=== PATIENT | female | born 1995 | race Two or more races ===

== ENCOUNTER 2019-07-08 06:26 | Emergency (ER) | payer MEDICAID ==
[~2019-07-08] VITALS: Ht 162.6 cm; Wt 67.3 kg
[2019-07-08] MEDS ORDERED: LORazepam 2 MG/ML VIAL ONE (06:29)
[2019-07-08] MEDS ORDERED: ETOMIDATE 2 MG/ML 10 ML VIAL ONE (06:53)
[2019-07-08] MEDS ORDERED: ROCURONIUM BROMIDE 10 MG/ML 5 ML VIAL ONE (06:53)
[2019-07-08] MEDS ORDERED: PROPOFOL 1000 MG/ISO-OSM 100 ML IV ONE ×2 (06:57→12:28)
[2019-07-08] MEDS ORDERED: PROPOFOL 1000 MG/ISO-OSM 100 ML IV PRN (07:05)
[2019-07-08 07:32] LABS: EOSINOPHILS % (AUTO) 0.4 % (1.0-6.0); HEMATOCRIT 41.6 % (36-46); LYMPHOCYTES % (AUTO) 29.1 % (22.0-44.0); MEAN CORPUSCULAR HEMOGLOBIN 36.1 pg (26.0-34.0); MEAN CORPUSCULAR HGB CONC 33.6 G/dL (31.0-37.0); MEAN CORPUSCULAR VOLUME 108 fL (80-100); MONOCYTES # (AUTO) 0.7 K/uL (0.1-1.0); MONOCYTES % (AUTO) 10.7 % (2.0-9.0); NEUTROPHILS % (AUTO) 58.8 % (40.0-70.0); PLATELET COUNT (AUTO) 118 K/uL (150-450); RED BLOOD CELL COUNT(AUTO) 3.87 MIL/uL (4.00-5.20); RED CELL DISTRIBUTION WIDTH 14.3 % (11.5-14.5)
[2019-07-08 07:42] LABS: ABG A-A DIFF O2 582.4 mmHg (10-20.0); ABG BASE EXCESS -10.1 mmol/L (-2.0-3.0); ABG CARBOXYHEMOGLOBIN 0.2 % (0.0-3.0); ABG HCO3 16.4 mmol/L (22.0-26.0); ABG METHEMOGLOBIN 0.4 % (0.0-1.5); ABG OXYGEN CONTENT 19.4 mL/dL (15.0-23.0); ABG OXYGEN SATURATION 91.1 % (95.0-98.0); ABG OXYHEMOGLOBIN 90.6 % (94.0-100.0); ABG PCO2 51 mmHg (35-45); ABG TOTAL HEMOGLOBIN 15.2 G/dL (12.0-18.0); PO2, ARTERIAL BG 79.8 mmHg (80.0-100.0); SOURCE, BLOOD GAS ARTERIAL; TEMPERATURE, FAHRENHEIT, BG 98.6 FAHREN (96.0-98.6)
[2019-07-08 07:43] LABS: ABG PH 7.176 (7.350-7.450); O2 DEVICE,BLOOD GAS VENTILATOR (ROOM AIR); PEEP,BG 5 cm H2O; SITE, BLOOD GAS RT RADIAL; VT, ABG 450 ml
[2019-07-08] MEDS ORDERED: AZITHROMYCIN 500 MG/NS 250 ML IV ONE (07:45)
[2019-07-08] MEDS ORDERED: SODIUM CHLORIDE 0.9% 2,000 ML IV ONE (07:45)
[2019-07-08] MEDS ORDERED: CefTRIAXone 1 GM/DEXTROSE 50 ML IV ONE (07:45)
[2019-07-08 07:46] LABS: INR 1.1 (0.9-1.1); PROTHROMBIN TIME 11.3 SEC (9.4-11.6)
[2019-07-08 07:50] LABS: GLUCOSE,POINT OF CARE 328 MG/DL (70-110)
[2019-07-08 07:50] LABS: AMMONIA 73 umol/L (11-32)
[2019-07-08 07:51] LABS: TROPONIN I < 0.02 ng/mL (0.00-0.05)
[2019-07-08 07:52] LABS: B-TYPE NATRIURETIC PEPTIDE 47 pg/mL (0-100)
[2019-07-08 08:09] LABS: ALANINE AMINOTRANSFERASE 96 U/L (12-78); ALBUMIN 3.5 g/dL (3.4-5.0); ALKALINE PHOSPHATASE 118 U/L (46-116); ANION GAP 29 mmol/L (8-16); ASPARTATE AMINOTRANSFERASE 354 U/L (15-37); BILIRUBIN,TOTAL 1.3 mg/dL (0.1-1.0); CALCIUM, TOTAL 8.2 mg/dL (8.8-10.5); CARBON DIOXIDE 13 mmol/L (22-29); CHLORIDE 93 mmol/L (98-107); CREATINE KINASE, TOTAL ONLY 163 U/L (26-192); CREATININE 1.35 mg/dL (0.60-1.30); GLOMERULAR FILTR. RATE CALC 49 mL/min (>60); GLUCOSE,RANDOM 266 mg/dL (70-110); HCG,QUANTITATIVE < 1 mIU/mL (0-6); SODIUM SERUM 135 mmol/L (136-145); TOTAL PROTEIN, SERUM 6.9 g/dL (6.4-8.2); UREA NITROGEN, BLOOD 15 mg/dL (7-18)
[2019-07-08 08:11] LABS: POTASSIUM 2.5 mmol/L (3.5-5.1)
[2019-07-08 08:12] LABS: LACTIC ACID 8.7 mmol/L (0.4-2.0)
[2019-07-08] MEDS: POTASSIUM CHL 10 MEQ/WATER 50 ML IV SCH ×2 (08:30→09:58)
[2019-07-08 09:05] LABS: INFLUENZA TYPE A NEGATIVE FOR TYPE A (NEGATIVE); INFLUENZA TYPE B NEGATIVE FOR TYPE B (NEGATIVE)
[2019-07-08] MEDS ORDERED: NOREPINEPHRINE 4 MG/D5%-WATER 250 ML IV ONE ×2 (10:03→13:04)
[2019-07-08] MEDS ORDERED: SODIUM CHLORIDE 0.9% 500 ML IV ONE (10:35)
[2019-07-08] MEDS: FentaNYL CITRATE PF 500 MCG in DEXTROSE 5%-WATER 90 ML IV PRN ×2 (10:40→12:04)
[2019-07-08] MEDS ORDERED: ALBUTEROL SULFATE 2.5 MG/0.5 ML NEB SOLUTION NEB ONE (10:50)
[2019-07-08] MEDS ORDERED: 0.9% SODIUM CHLORIDE 5 ML NEB SOLUTION NEB ONE (10:50)
[2019-07-08] MEDS ORDERED: IPRATROPIUM BROMIDE 0.5 MG/2.5 ML NEB SOLUTION NEB ONE (10:50)
[2019-07-08] MEDS ORDERED: DEXAMETHASONE SOD PHOS 4 MG/ML 5 ML VIAL ONE (10:55)
[2019-07-08 11:07] LABS: ABG A-A DIFF O2 633.4 mmHg (10-20.0); ABG BASE EXCESS -15.8 mmol/L (-2.0-3.0); ABG CARBOXYHEMOGLOBIN 0.6 % (0.0-3.0); ABG HCO3 12.3 mmol/L (22.0-26.0); ABG METHEMOGLOBIN 0.3 % (0.0-1.5); ABG OXYGEN CONTENT 13.9 mL/dL (15.0-23.0); ABG OXYHEMOGLOBIN 63.1 % (94.0-100.0); ABG PCO2 44 mmHg (35-45); ABG TOTAL HEMOGLOBIN 15.7 G/dL (12.0-18.0); SOURCE, BLOOD GAS ARTERIAL; TEMPERATURE, FAHRENHEIT, BG 95.2 FAHREN (96.0-98.6)
[2019-07-08 11:08] LABS: ABG OXYGEN SATURATION 63.7 % (95.0-98.0); O2 DEVICE,BLOOD GAS VENTILATOR (ROOM AIR); PO2, ARTERIAL BG 40.1 mmHg (80.0-100.0); SITE, BLOOD GAS ARTERIAL LINE
[2019-07-08 11:09] LABS: PEEP,BG 5 cm H2O; VT, ABG 450 ml
[2019-07-08] MEDS ORDERED: SODIUM BICARBONATE [ADULT] 8.4% 50 MEQ/50 ML SYRINGE IVP ONE ×2 (11:17→11:30)
[2019-07-08] MEDS ORDERED: SODIUM BICARBONATE 150 MEQ in DEXTROSE 5%-WATER 1,000 ML IV ONE (11:30)
[2019-07-08] MEDS ORDERED: PHENYLEPHRINE HCL IN 0.9% NACL 400 MCG/10 ML SYRINGE IVP ONE ×2 (12:08→13:21)
[2019-07-08] MEDS ORDERED: PHENYLEPHRINE 200 MG/D5%-WATER 250 ML IV PRN (12:18)
[2019-07-08 12:30] VITALS: BP 168/123
[2019-07-08 12:56] LABS: ABG A-A DIFF O2 635.8 mmHg (10-20.0); ABG BASE EXCESS -7.1 mmol/L (-2.0-3.0); ABG CARBOXYHEMOGLOBIN 0.9 % (0.0-3.0); ABG HCO3 17.1 mmol/L (22.0-26.0); ABG METHEMOGLOBIN 0.3 % (0.0-1.5); ABG OXYGEN CONTENT 13.3 mL/dL (15.0-23.0); ABG OXYGEN SATURATION 60.1 % (95.0-98.0); ABG OXYHEMOGLOBIN 59.4 % (94.0-100.0); ABG PCO2 55 mmHg (35-45); ABG PH 7.197 (7.350-7.450); O2 DEVICE,BLOOD GAS VENTILATOR (ROOM AIR); PO2, ARTERIAL BG 31.3 mmHg (80.0-100.0); SITE, BLOOD GAS ARTERIAL LINE; SOURCE, BLOOD GAS ARTERIAL; VT, ABG 450 ml
[2019-07-08 12:57] LABS: PEEP,BG 10 cm H2O
[2019-07-08] MEDS ORDERED: VASOPRESSIN 40 UNITS in DEXTROSE 5%-WATER 98 ML IV PRN (13:02)
[2019-07-08] MEDS ORDERED: EPINEPHrine 2 MG, CALCIUM CHLORIDE 1,000 MG in DEXTROSE 5%-WATER 238 ML IV PRN (13:15)
[2019-07-08] MEDS ORDERED: SODIUM CHLORIDE 0.9% 250 ML IV ONE (13:19)
== END 2019-07-08 13:30 | disposition short-term general hospital (02) ==
LOC: EMS 06:26
DX: A41.9 Sepsis, unspecified organism (principal); I46.9 Cardiac arrest, cause unspecified; J96.90 Respiratory failure, unspecified, unspecified whether with hypoxia or hypercapnia; J18.9 Pneumonia, unspecified organism; E87.2 Acidosis; R74.0 Nonspecific elevation of levels of transaminase and lactic acid dehydrogenase [LDH]; E87.6 Hypokalemia
CPT/HCPCS: 31500; 36415; 36556; 36600; 70450; 71045; 76700; 80053; 82140; 82550; 82805; 82962; 83605; 83880; 84484; 84702; 85025; 85610; 85730; 87040; 87205; 87804; 93005; 93306; 96365; 96366; 96367; 96368; 99291; 99292; G0480; J0171; J0456; J0696; J1100; J2060; J2370; J2704; J3010; J3480; J3490 ×6; J7030; J7040; J7050; J7060 ×3; 51702; 94002; 96376